=== PATIENT | female | born 1955 | race Caucasian/White ===

== ENCOUNTER → 2018-05-13 | Outpatient (CLI) | payer OTHER, MEDICARE ==
[~2018-05-13] MED LIST: Desyrel50 MG; ERGO400; Estradiol0.5 MG; Hair, Skin & N1 EACH; PROG100
[2018-05-13 10:17] LABS: Free Thyroxine 0.96 ng/dL (0.70-1.60); Thyroid Stimulating Hormone 1.984 uIU/mL (0.360-4.800)
== END | disposition home or self-care (01) ==
LOC: LAB EV 09:49 → LAB SHORT 09:49
PROVIDERS: General Practice
DX: G60.9 Hereditary and idiopathic neuropathy, unspecified (principal); R53.81 Other malaise
CPT/HCPCS: 82607; 84439; 84443

== ENCOUNTER → 2019-09-20 | Outpatient (CLI) | payer OTHER, MEDICARE | END | disposition home or self-care (01) | LOC: LAB SHORT 11:19 → PLD 11:19 | DX: D48.5 Neoplasm of uncertain behavior of skin (principal) | CPT/HCPCS: 88305 ==